=== PATIENT | male | born 1935 | race Hispanic/Latino ===

== ENCOUNTER 2019-01-14 13:52 | Inpatient (IN) | payer OTHER, MEDICARE ==
[~2019-01-14] VITALS: Ht 177.8 cm; Wt 89.0 kg
[2019-01-14 14:31] LABS: BASOPHILS % (AUTO) 0.4 % (0.0-5.0); EOSINOPHILS % (AUTO) 0.4 % (0.0-8.0); HEMATOCRIT 34.9 % (42-54); LYMPHOCYTES % (AUTO) 4.6 % (21.0-51.0); MEAN CORPUSCULAR HEMOGLOBIN 29.9 pg (27.0-33.0); MEAN CORPUSCULAR HGB CONC 33.5 g/dL (32.0-36.0); MEAN CORPUSCULAR VOLUME 89.2 fL (79-99); MONOCYTES % (AUTO) 6.1 % (3.0-13.0); NEUTROPHILS % (AUTO) 88.5 % (40.0-77.0); PLATELET COUNT (AUTO) 178 K/uL (130-400); RED BLOOD CELL COUNT(AUTO) 3.91 MIL/uL (4.50-6.20); RED CELL DISTRIBUTION WIDTH 15.7 % (11.0-15.5); WHITE BLOOD COUNT (AUTO) 9.4 K/uL (4.8-10.8)
[2019-01-14 14:53] LABS: CREATININE 0.8 mg/dL (0.5-1.5); POTASSIUM 3.4 mmol/L (3.5-5.1)
[2019-01-14 14:54] LABS: INR 0.96 (0.85-1.15); PARTIAL THROMBOPLASTIN TIME 29.9 SEC (26.3-35.5); PROTHROMBIN TIME 10.1 SEC (9.6-11.6)
[2019-01-14 14:58] LABS: TOTAL PROTEIN, SERUM 7.6 g/dL (6.0-8.3)
[2019-01-14] MEDS ORDERED: ONDANSETRON HCL 4 MG/2 ML VIAL ONE (15:05)
[2019-01-14] MEDS ORDERED: SODIUM CHLORIDE 0.9% 1000ML 1,000 ML IV ONE ×3 (15:05→21:11)
[2019-01-14] MEDS ORDERED: MORPHINE SULFATE 4 MG/1ML SYG ONE (15:05)
[2019-01-14] MEDS ORDERED: LABETALOL HCL 5 MG/ML 20ML VIAL IV ONE (16:29)
[2019-01-14] MEDS ORDERED: IOHEXOL-350 75 ML VIAL IV ONE (16:51)
[2019-01-14] MEDS ORDERED: ZOSYN 3.375GM+NS 50ML 50 ML IV ONE ×2 (17:42→21:11)
[2019-01-14] MEDS ORDERED: SODIUM CHLORIDE 0.9% 50 ML IV ONE ×2 (17:43→21:11)
[2019-01-14 18:02] LABS: BASOPHILS % (AUTO) 0.7 % (0.0-5.0); LYMPHOCYTES % (AUTO) 0.8 % (21.0-51.0); MEAN CORPUSCULAR HEMOGLOBIN 29.9 pg (27.0-33.0); MEAN CORPUSCULAR HGB CONC 33.6 g/dL (32.0-36.0); MEAN CORPUSCULAR VOLUME 89.2 fL (79-99); NEUTROPHILS % (AUTO) 92.5 % (40.0-77.0); PLATELET COUNT (AUTO) 163 K/uL (130-400); RED BLOOD CELL COUNT(AUTO) 3.92 MIL/uL (4.50-6.20); RED CELL DISTRIBUTION WIDTH 15.8 % (11.0-15.5); WHITE BLOOD COUNT (AUTO) 9.6 K/uL (4.8-10.8)
[2019-01-14 18:19] LABS: CREATININE 0.9 mg/dL (0.5-1.5); POTASSIUM 3.7 mmol/L (3.5-5.1)
[2019-01-14 18:32] LABS: ALBUMIN 2.8 g/dL (3.5-5.0); BILIRUBIN,TOTAL 3.6 mg/dL (0.2-1.0); TOTAL PROTEIN, SERUM 7.2 g/dL (6.0-8.3)
[2019-01-14 18:33] LABS: APPEARANCE,URINE Clear (CLEAR); BILIRUBIN,URINE Small (NEGATIVE); COLOR,URINE Dark Yellow (YELLOW); GLUCOSE, URINE (UA) Negative (NEGATIVE); KETONES,URINE Negative (NEGATIVE); LEUKOCYTE ESTERASE ,URINE Negative (NEGATIVE); NITRATE,URINE Negative (NEGATIVE); OCCULT BLOOD,URINE Negative (NEGATIVE); PH,URINE 5.5 (5.0-8.0); PROTEIN,URINE Negative (NEGATIVE)
[2019-01-14 18:47] LABS: BACTERIA,URINE Rare /HPF (None Seen); RBC,URINE 0-1 /HPF (0-1); SQUAMOUS EPITHELIAL CELL,UR Rare /HPF (0-2); WBC,URINE 0-1 /HPF (0-1)
[2019-01-14 22:05] VITALS: BP 137/61
--- NOTE | 2019-01-14 22:10 | NUR ---
ADMIT PT ADMITTED TO ROOM 314, AAOX3. PT IS VERY [place] AND IS WEARING HEARING AIDS. ADMISSION CARED ONE. ADMISSION DATA BASE COMPLETED. ORIENTED TO ROOM AND UNIT. EXPLAINED NPO STATUS AND PT AND FAMILY VERBALIZES UNDERSTANDING. CONTINUED IVF OF NS FROM ER, REGULATED AT 100CC/HR. IN FOR MORE CARE AND MANAGEMENT. Addendum: 01/15/19 at 0227 by JAYLON WU RN RN Amended: Links added.
[2019-01-14] MEDS ORDERED: ONDANSETRON HCL 4 MG/2 ML VIAL IVP PRN (22:15)
[2019-01-14] MEDS: SODIUM CHLORIDE 0.9% 1000ML 1,000 ML IV SCH (22:15)
[2019-01-14] MEDS ORDERED: HYDROMORPHONE HCL 2 MG/ML VIAL IVP PRN (22:15)
[2019-01-14] MEDS ORDERED: ACETAMINOPHEN 325 MG TAB PO PRN (22:15)
[2019-01-14] MEDS ORDERED: METF-444 PO (22:30)
[2019-01-14] MEDS ORDERED: LISI2.5T2 PO (22:30)
[2019-01-14] MEDS ORDERED: ASPI-1197 PO (22:30)
[2019-01-14] MEDS ORDERED: TAMS0.4C32 PO (22:30)
[2019-01-14] MEDS ORDERED: LEVO88TA7 PO (22:30)
[2019-01-14] MEDS ORDERED: ATOR20TA65 PO (22:30)
[2019-01-15] VITALS (23 sets, daily range): BP systolic 97–186; BP diastolic 46–85
[2019-01-15] MEDS: ZOSYN 3.375GM+NS 50ML 50 ML IV SCH ×3 (01:46→18:31)
--- NOTE | 2019-01-15 01:46 | NUR ---
MEDS PT FAIRLY ASLEEP WITH RESPIRATIONS EVEN AND UNLABORED. NO NOTED DISTRESS. KEPT UNDISTURBED FOR NOW. IV ZOSYN INFUSED. CALL LIGHT WITHIN REACH. WILL CONTINUE TO MONITOR.
[2019-01-15] MEDS: LEVOTHYROXINE 88 MCG TABLET PO SCH (05:35)
[2019-01-15] MEDS: SODIUM CHLORIDE 0.9% 1000ML 1,000 ML IV SCH ×2 (05:45→18:15)
--- NOTE | 2019-01-15 05:45 | NUR ---
ROUNDS PT IS ALREADY BATHED AND CLEANED BY PCP. NO DISTRESS NOTED. NO GGYOSC3PN VERBALIZED. KEPT COMFORTABLE IN BED. KEPT NPO. FOR MORE CARE.
[2019-01-15 06:37] LABS: HEMATOCRIT 29.2 % (42-54); MEAN CORPUSCULAR HEMOGLOBIN 29.8 pg (27.0-33.0); MEAN CORPUSCULAR HGB CONC 33.2 g/dL (32.0-36.0); MEAN CORPUSCULAR VOLUME 89.6 fL (79-99); PLATELET COUNT (AUTO) 160 K/uL (130-400); RED BLOOD CELL COUNT(AUTO) 3.26 MIL/uL (4.50-6.20); RED CELL DISTRIBUTION WIDTH 15.7 % (11.0-15.5); WHITE BLOOD COUNT (AUTO) 8.7 K/uL (4.8-10.8)
[2019-01-15 07:03] LABS: ALBUMIN 2.3 g/dL (3.5-5.0); BILIRUBIN,TOTAL 4.5 mg/dL (0.2-1.0); CREATININE 0.9 mg/dL (0.5-1.5); MAGNESIUM 1.7 mg/dL (1.80-2.40); PHOSPHORUS 4.1 mg/dL (2.5-4.9); POTASSIUM 3.7 mmol/L (3.5-5.1); TOTAL PROTEIN, SERUM 6.1 g/dL (6.0-8.3)
--- NOTE | 2019-01-15 07:30 | NUR ---
EMILIO BELL, GI STAFF, IN TO TAKE PT DOWN FOR PROCEDURE. FOR MORE CARE.
[2019-01-15] MEDS ORDERED: SUCCINYLCHOLINE CHLORIDE 20 MG/ML 10 ML VIAL ONE (07:31)
[2019-01-15] MEDS ORDERED: PROPOFOL 1000 MG/100 ML 100 ML IV ONE (07:31)
[2019-01-15] MEDS ORDERED: IOHEXOL-350 50ML VIAL IV ONE (07:57)
[2019-01-15] MEDS ORDERED: ASPIRIN 81MG TAB.CHEW PO SCH (09:00)
[2019-01-15] MEDS ORDERED: INDOMETHACIN 50 MG SUPP.RECT RC SCH (09:30)
[2019-01-15] MEDS ORDERED: GLYCOPYRROLATE 0.2 MG/ML 5 ML VIAL ONE (10:01)
[2019-01-15] MEDS ORDERED: LABETALOL 20 MG/4 ML DISP.SYRIN IV ONE (10:22)
--- NOTE | 2019-01-15 10:55 | NUR ---
RETURNED FROM PACU ALERT AND AWAKE, USED THE BATHROOM UPON ARRIVAL. DENIES PAIN NO ACUTE DISTRESS OBSERVED. VITAL SIGNS ARE STABLE. PER GI RECOMMENDATION DR PLUNKETT WAS CONSULTED.
[2019-01-15] MEDS: TAMSULOSIN HCL 0.4 MG CAP.ER.24H PO SCH (11:50)
[2019-01-15] MEDS: PANTOPRAZOLE 40 MG/VIAL IVP SCH (11:52)
--- NOTE | 2019-01-15 12:50 | NUR ---
DR PLUNKETT CAME IN TO SEE THE PATIENT AND HE SAID HE WILL MONITOR THE LABS TOMORROW AND WILL PLAN SURGERY ON WEDNESDAY.
--- NOTE | 2019-01-15 13:00 | NUR ---
FAMILY AT THE BEDSIDE WERE MADE AWARE OF THE TREATMENT PLAN BY DR PLUNKETT.
--- NOTE | 2019-01-15 15:46 | NUR ---
INITIAL: Met with pt and family this afternoon to discuss dcp. Per dtr Sabina, prior to admission pt was living w her brother Tavon. Pt previously used a cane for ambulation and was independent w ADLs. Pt does not receive any services. Pt states that he feels safe and comfortable to return home at [place]. Will continue to follow and wait for Md recommendations. Addendum: 01/15/19 at 1549 by JANICE SABA CM Amended: Links added.
[2019-01-15] MEDS: METFORMIN HCL 500 MG TABLET PO SCH (16:52)
--- NOTE | 2019-01-15 20:15 | NUR ---
PAGED PCP INFORMED PROP MAKING SUPERVISOR THAT PT HAS ELEVATED BP OF 186/72. NO DISTRESS NOTED. NO COMPLAINTS OF PAINS AT THIS TIME. PT IS STRICT NPO PER SURGEON. PAGED DR ALONSO PAGED VIA ANSWERING SERVICE. CALLED BACK AND REFERRED ELEVATED BP. NEW MED ORDER GIVEN. WILL MEDICATE PT.
[2019-01-15] MEDS: ATORVASTATIN CALCIUM 20 MG TABLET PO SCH (21:00)
[2019-01-15] MEDS: LISINOPRIL 2.5 MG TABLET PO SCH (21:00)
[2019-01-15] MEDS: HYDRALAZINE HCL 20 MG/ML VIAL IV PRN (21:06)
[2019-01-16] VITALS (7 sets, daily range): BP systolic 160–179; BP diastolic 69–90
[2019-01-16] MEDS: SODIUM CHLORIDE 0.9% 1000ML 1,000 ML IV SCH ×3 (02:07→23:25)
[2019-01-16] MEDS: ZOSYN 3.375GM+NS 50ML 50 ML IV SCH ×2 (02:07→21:00)
--- NOTE | 2019-01-16 02:07 | NUR ---
ROUNDS PT FAIRLY ASLEEP. WITH RESPIRATIONS EVEN AND UNLABORED. IV ANTIBIOTICS AND NEW IVF BAG HUNG. KEPT UNDISTURBED FOR NOW. WILL CONTINUE TO MONITOR. CALL LIGHT WITHIN REACH.
--- NOTE | 2019-01-16 05:00 | NUR ---
PIV PT'S IV PUMP KEEPS BEEPING PIV ON THE RT AC, POSITIONAL. SALINE PIV SITE THEN INSERTED SECOND PIV G20 TO RT FOREARM. PT TOLERATED INSERTION WELL. KEPT COMFORTABLE IN BED. FOR MORE CARE.
[2019-01-16] MEDS: LEVOTHYROXINE 88 MCG TABLET PO SCH (05:16)
[2019-01-16 06:21] LABS: BASOPHILS % (AUTO) 0.6 % (0.0-5.0); EOSINOPHILS % (AUTO) 1.2 % (0.0-8.0); HEMATOCRIT 30.3 % (42-54); LYMPHOCYTES % (AUTO) 7.1 % (21.0-51.0); MEAN CORPUSCULAR HEMOGLOBIN 30.2 pg (27.0-33.0); MEAN CORPUSCULAR HGB CONC 33.6 g/dL (32.0-36.0); MONOCYTES % (AUTO) 8.7 % (3.0-13.0); NEUTROPHILS % (AUTO) 82.4 % (40.0-77.0); PLATELET COUNT (AUTO) 173 K/uL (130-400); RED BLOOD CELL COUNT(AUTO) 3.37 MIL/uL (4.50-6.20); RED CELL DISTRIBUTION WIDTH 15.6 % (11.0-15.5); WHITE BLOOD COUNT (AUTO) 6.2 K/uL (4.8-10.8)
[2019-01-16 06:45] LABS: ALBUMIN 2.3 g/dL (3.5-5.0); BILIRUBIN,TOTAL 2.6 mg/dL (0.2-1.0); CREATININE 0.8 mg/dL (0.5-1.5); POTASSIUM 3.4 mmol/L (3.5-5.1); TOTAL PROTEIN, SERUM 6.2 g/dL (6.0-8.3)
[2019-01-16] MEDS: TAMSULOSIN HCL 0.4 MG CAP.ER.24H PO SCH (09:06)
[2019-01-16] MEDS: PANTOPRAZOLE 40 MG/VIAL IVP SCH (09:06)
--- NOTE | 2019-01-16 11:20 | NUR ---
DR PLUNKETT CAME IN TO ROUND ON THE PATIENT AND NEW ORDER WAS RECEIVED FOR SERENE KRUGER. ORDER WAS FAXED AND CALLED TO THE [employer] DEVELOPER, WANDA GUDINO.
[2019-01-16] MEDS: METFORMIN HCL 500 MG TABLET PO SCH (17:00)
[2019-01-16] MEDS: LISINOPRIL 2.5 MG TABLET PO SCH (20:59)
[2019-01-16] MEDS: ATORVASTATIN CALCIUM 20 MG TABLET PO SCH (20:59)
--- NOTE | 2019-01-16 21:00 | NUR ---
MEDS PT ALREADY ASLEEP WITH RESPIRATIONS EVEN AND UNLABORED. NO NOTED DISTRESS. KEPT COMFORTABLE IN BED, WITH HOB ELEVATED. DUE IV ANTIBIOTICS INFUSED. WILL MONITOR PT. CALL LIGHT WITHIN REACH.
[2019-01-17] VITALS (24 sets, daily range): BP systolic 151–195; BP diastolic 60–92
[2019-01-17] MEDS: ZOSYN 3.375GM+NS 50ML 50 ML IV SCH ×3 (01:59→17:05)
--- NOTE | 2019-01-17 02:00 | NUR ---
ROUNDS PT RESTING WELL, FAIRLY ASLEEP. NO DISTRESS NOTED. KEPT UNDISTURBED FOR NOW. KEPT NPO.
[2019-01-17 05:03] LABS: BASOPHILS % (AUTO) 0.8 % (0.0-5.0); EOSINOPHILS % (AUTO) 2.1 % (0.0-8.0); HEMATOCRIT 29.1 % (42-54); LYMPHOCYTES % (AUTO) 12.8 % (21.0-51.0); MEAN CORPUSCULAR HGB CONC 33.6 g/dL (32.0-36.0); MEAN CORPUSCULAR VOLUME 89.1 fL (79-99); MONOCYTES % (AUTO) 9.7 % (3.0-13.0); NEUTROPHILS % (AUTO) 74.6 % (40.0-77.0); PLATELET COUNT (AUTO) 177 K/uL (130-400); RED BLOOD CELL COUNT(AUTO) 3.27 MIL/uL (4.50-6.20); RED CELL DISTRIBUTION WIDTH 16.2 % (11.0-15.5)
[2019-01-17 05:31] LABS: ALBUMIN 2.2 g/dL (3.5-5.0); BILIRUBIN,TOTAL 1.6 mg/dL (0.2-1.0); CREATININE 0.8 mg/dL (0.5-1.5); POTASSIUM 3.2 mmol/L (3.5-5.1)
[2019-01-17] MEDS: LEVOTHYROXINE 88 MCG TABLET PO SCH (05:51)
--- NOTE | 2019-01-17 06:38 | NUR ---
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
--- NOTE | 2019-01-17 08:00 | NUR ---
ALERT AND ORIENTED X3, RESPIRATIONS EVEN AND REGULAR ON ROOM AIR. DENIES PAIN AT THIS TIME, CURRENTLY NPO FOR SURGERY.
[2019-01-17] MEDS: TAMSULOSIN HCL 0.4 MG CAP.ER.24H PO SCH (08:31)
[2019-01-17] MEDS: PANTOPRAZOLE 40 MG/VIAL IVP SCH (08:43)
--- NOTE | 2019-01-17 08:50 | NUR ---
T/C SENT TO [employer] STAFF BLUEBERRY GROWER FOR POTASSIUM LEVEL OF 3.2, PENDING CALL BACK.
[2019-01-17] MEDS ORDERED: POTASSIUM CHLORIDE 10% ELIXIR 20 MEQ/15 ML UDCUP PO PRN (09:30)
[2019-01-17] MEDS ORDERED: LIDOCAINE HCL-MPF 1% 2ML VIAL IVP PRN ×2 (09:30)
[2019-01-17] MEDS ORDERED: POTASSIUM CHLORIDE 20MEQ/100ML 100 ML IV PRN ×2 (09:30)
[2019-01-17] MEDS: SODIUM CHLORIDE 0.9% 1000ML 1,000 ML IV SCH ×4 (10:15→22:02)
[2019-01-17] MEDS ORDERED: PROPOFOL 10 MG/ML 20ML VIAL IV ONE (11:14)
[2019-01-17] MEDS ORDERED: ROCURONIUM 10MG/1ML SYR 10 MG/ML ML ONE (11:15)
[2019-01-17] MEDS ORDERED: ONDANSETRON HCL 4 MG/2 ML VIAL ONE (11:27)
[2019-01-17] MEDS ORDERED: LIDOCAINE PF 2% 5ML ABBOJECT ONE (11:27)
[2019-01-17] MEDS ORDERED: FENTANYL CITRATE PF 50 MCG/1 ML 2ML VIAL ONE (11:28)
[2019-01-17] MEDS ORDERED: NEOSTIGMINE 5MG/5ML SYR IV ONE (12:19)
[2019-01-17] MEDS ORDERED: GLYCOPYRROLATE 1 MG/5 ML SYRINGE ONE (12:20)
[2019-01-17] MEDS ORDERED: MORPHINE SULFATE 4 MG/1ML SYG ONE (12:41)
[2019-01-17] MEDS ORDERED: LABETALOL 20 MG/4 ML DISP.SYRIN IV ONE (12:41)
[2019-01-17] MEDS ORDERED: ACETAMINOPHEN-CODEINE 300/30MG TAB PO PRN (12:45)
[2019-01-17] MEDS: HYDRALAZINE HCL 20 MG/ML VIAL IV PRN ×3 (13:07→18:35)
--- NOTE | 2019-01-17 13:54 | NUR ---
RETURNED TO THE UNIT AT THIS TIME DROWZY BUT AROUSED EASILY TO SOFT VOICE STIMULI. DENIES ACTIVE PAIN WHEN ASKED. ELEVATED BP 188/87, O2SAT 99% ON 2LPM SINUS RHYTHM AT 71BPM. WILL CONTINUE TO MONITOR.
--- NOTE | 2019-01-17 17:00 | NUR ---
ASSISTED TO THE BATHROOM, TOLERATED THE ACTIVITY WELL.
[2019-01-17] MEDS: METFORMIN HCL 500 MG TABLET PO SCH (17:05)
--- NOTE | 2019-01-17 17:43 | NUR ---
ABDOMINAL INCISIONS SITESX4 ARE CLEAN AND DRY WITH STERI STRIPES. NO ACTIVE BLEEDING NOTED. FAMILY AT THE BEDSIDE.
--- NOTE | 2019-01-17 20:00 | NUR ---
s/p LAp Jessie Patient post op LAp Jessie with Dr. Metzger, Dressings are dry and intact, No complaints of pain at the moment
[2019-01-17] MEDS: LISINOPRIL 2.5 MG TABLET PO SCH (22:01)
[2019-01-17] MEDS: ATORVASTATIN CALCIUM 20 MG TABLET PO SCH (22:01)
[2019-01-18] MEDS: ZOSYN 3.375GM+NS 50ML 50 ML IV SCH ×2 (02:06→09:26)
[2019-01-18 03:00] VITALS: BP 177/79
[2019-01-18] MEDS: LEVOTHYROXINE 88 MCG TABLET PO SCH (06:41)
[2019-01-18] MEDS: SODIUM CHLORIDE 0.9% 1000ML 1,000 ML IV SCH ×2 (06:42→08:33)
[2019-01-18 08:00] VITALS: BP 195/89
[2019-01-18] MEDS: POTASSIUM CHLORIDE 20 MEQ ERTAB PO PRN ×3 (09:26→13:11)
[2019-01-18] MEDS: TAMSULOSIN HCL 0.4 MG CAP.ER.24H PO SCH (09:26)
[2019-01-18] MEDS: PANTOPRAZOLE 40 MG/VIAL IVP SCH (09:27)
[2019-01-18] MEDS: HYDRALAZINE HCL 20 MG/ML VIAL IV PRN (11:24)
[2019-01-18 12:00] VITALS: BP 199/93
[2019-01-18] MEDS: AMLODIPINE BESYLATE 5 MG TAB PO SCH (13:11)
[2019-01-18 16:00] VITALS: BP 178/90
[2019-01-18] MEDS: METFORMIN HCL 500 MG TABLET PO SCH (16:27)
[2019-01-18 20:00] VITALS: BP 168/78
[2019-01-18] MEDS ORDERED: LISINOPRIL 10 MG TABLET PO SCH (21:00)
[2019-01-18] MEDS: ATORVASTATIN CALCIUM 20 MG TABLET PO SCH (21:23)
[2019-01-19] VITALS: BP 180/99
[2019-01-19 02:55] VITALS: BP 181/98
[2019-01-19] MEDS: HYDRALAZINE HCL 20 MG/ML VIAL IV PRN (02:58)
[2019-01-19 04:33] VITALS: BP 153/74
[2019-01-19 05:27] LABS: CREATININE 0.7 mg/dL (0.5-1.5); POTASSIUM 3.3 mmol/L (3.5-5.1)
[2019-01-19] MEDS: LEVOTHYROXINE 88 MCG TABLET PO SCH (06:42)
[2019-01-19] MEDS: POTASSIUM CHLORIDE 20 MEQ ERTAB PO PRN ×3 (06:42→11:47)
[2019-01-19 08:00] VITALS: BP 161/70
[2019-01-19] MEDS: AMLODIPINE BESYLATE 5 MG TAB PO SCH (08:25)
[2019-01-19] MEDS: TAMSULOSIN HCL 0.4 MG CAP.ER.24H PO SCH (08:25)
[2019-01-19] MEDS ORDERED: PANTOPRAZOLE SODIUM 40 MG TABLET.DR PO SCH (09:00)
[2019-01-19 12:00] VITALS: BP 112/62
[2019-01-19 16:00] VITALS: BP 129/61
[2019-01-19] MEDS: METFORMIN HCL 500 MG TABLET PO SCH (16:11)
--- NOTE | 2019-01-19 18:52 | NUR ---
PATIENT DISCHARGE PATIENT DISCHARGED, IV DISCONTINUED, BLEEDING CONTROLLED, CATHLON INTACT, PATIENT TOLERATED WITHOUT INCIDENT.
== END 2019-01-19 18:15 | disposition home or self-care (01) | DRG 417 ==
LOC: EDH 13:52 → EDHIP 17:05 → 3CH 21:03
PROVIDERS: ADMIT Internal Medicine Pulmonary Disease; ATTEND Internal Medicine Pulmonary Disease
PROC: 0FC98ZZ Extirpation of Matter from Common Bile Duct, Via Natural or Artificial Opening Endoscopic (ICD-10-PCS; 2019-01-15)
PROC: BF141ZZ Fluoroscopy of Gallbladder, Bile Ducts and Pancreatic Ducts using Low Osmolar Contrast (ICD-10-PCS; 2019-01-15)
PROC: 0FT44ZZ Resection of Gallbladder, Percutaneous Endoscopic Approach (ICD-10-PCS; principal; 2019-01-17 11:10)
DX: K80.64 Calculus of gallbladder and bile duct with chronic cholecystitis without obstruction (principal); K85.10 Biliary acute pancreatitis without necrosis or infection; K76.0 Fatty (change of) liver, not elsewhere classified; N40.0 Benign prostatic hyperplasia without lower urinary tract symptoms; E03.9 Hypothyroidism, unspecified; E11.9 Type 2 diabetes mellitus without complications; E66.9 Obesity, unspecified; E78.5 Hyperlipidemia, unspecified; I10 Essential (primary) hypertension; Z87.891 Personal history of nicotine dependence; Z79.84 Long term (current) use of oral hypoglycemic drugs; Z68.28 Body mass index [BMI] 28.0-28.9, adult
CPT/HCPCS: 36415; 43262; 43264; 71045; 74177; 74330; 76705; 80048; 80053; 81001; 82550; 82948; 83690; 83735; 84100; 84132; 84478; 84484; 85025; 85027; 85610; 85730; 88304; 93005; 99291; C1769; C1773; C9113; G0378; J0330; J0360; J2001; J2270; J2405; J2543; J2704; J2710; J3010; J3480; J3490; J7030; J7120; Q9967